=== PATIENT | female | born 1950 | race Caucasian/White ===

== ENCOUNTER 2019-03-31 21:19 | Observation (INO) ==
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
[2019-03-31 22:07] LABS: Hematocrit 38.4 % (37.0-47.0); Hemoglobin 12.5 gm/dL (12.5-16.0); Mean Cell Volume 94.3 fl (78-100); Mean Corpuscular Hemoglobin 30.7 pg (27-31); Mean Corpuscular Hgb Conc 32.6 g/dl (32-36); Mean Platelet Volume 9.5 fl (8-12.5); Neutrophil # 3.4 K/mm3 (1.3-6.0); Neutrophil % 70.7 % (42-75.0); Platelet Count 210 K/mm3 (150-450); Red Blood Count 4.07 M/mm3 (4.2-5.4); Red Cell Distribution Width 12.7 % (11.5-14.0); White Blood Count 4.7 K/mm3 (4.0-10.5)
[2019-03-31 22:25] LABS: Urine Bilirubin Negative (NEGATIVE); Urine Blood 50 /ul (NEGATIVE); Urine Ketone Negative (NEGATIVE); Urine Nitrite Negative (NEGATIVE); Urine Protein Negative (NEGATIVE); Urine Specific Gravity 1.015 SP.GR. (1.005-1.010)
[2019-03-31 22:27] LABS: ALT 17 U/L (19-67); AST 18 U/L (0-48); Albumin * 3.6 gm/dl (3.4-5.0); Alkaline Phosphatase * 83 U/L (50-170); Anion Gap 13.2 mmol/L (6.8-13.8); BNP * 154 pg/mL (5-325); BUN/Creatinine Ratio 16.9 (9.0-21.6); Bilirubin, Total 0.4 mg/dL (0.0-1.1); Blood Urea Nitrogen 20 mg/dL (3-23); Ca. Corrected For Albumin 9.7 mg/dL (8.4-10.2); Calcium * 9.7 mg/dL (7.9-10.9); Carbon Dioxide 32.5 mmol/L (24-32.6); Chloride 100 mmol/L (97-106); Glucose * 233 mg/dL (70-110); Potassium 3.7 mmol/L (3.4-4.6); Sodium 142 mmol/L (132-142); Total Protein 7.4 gm/dL (6.2-8.2); Troponin I Less than 0.017 ng/mL (0.00-0.10)
[2019-03-31 22:36] LABS: Urine Appearance Clear (CLEAR); Urine Bacteria TRACE; Urine Color Yellow; Urine WBC 0-5 /hpf (0-5)
[2019-04-01] MEDS ORDERED: DEXTROSE 5 % IN WATER 100 ML BAG IV ONE (02:31)
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
[2019-04-01] MEDS ORDERED: ZOLPIDEM TARTRATE 10 MG TABLET PO PRN (09:34)
[2019-04-01] MEDS: LISINOPRIL 10 MG TABLET PO SCH (11:05)
[2019-04-01] MEDS: FENOFIBRATE,MICRONIZED 67 MG CAPSULE PO SCH (11:05)
[2019-04-01] MEDS: glipiZIDE 5 MG TAB.SR.24H PO SCH (11:05)
[2019-04-01] MEDS: CIPROFLOXACIN HCL 500 MG TABLET PO SCH ×2 (11:05→21:06)
[2019-04-01] MEDS: MULTIVITAMINS 1 CAP CAPSULE PO SCH (11:05)
[2019-04-01] MEDS: METOPROLOL SUCCINATE 100 MG TABLET.SA PO SCH (11:05)
[2019-04-01] MEDS: ASPIRIN 81 MG TABLET.DR PO SCH (13:15)
[2019-04-01] MEDS ORDERED: ROSUVASTATIN CALCIUM 10 MG TABLET PO SCH (21:00)
[2019-04-01] MEDS: NYSTATIN 15 APPL BTL TP SCH (21:04)
[2019-04-01] MEDS: BUMETANIDE 1 MG TABLET PO SCH (21:05)
[2019-04-02] MEDS: CIPROFLOXACIN HCL 500 MG TABLET PO SCH (08:16)
[2019-04-02] MEDS: BUMETANIDE 1 MG TABLET PO SCH (08:16)
[2019-04-02] MEDS: MULTIVITAMINS 1 CAP CAPSULE PO SCH (08:16)
[2019-04-02] MEDS: METOPROLOL SUCCINATE 100 MG TABLET.SA PO SCH (08:16)
[2019-04-02] MEDS: LISINOPRIL 10 MG TABLET PO SCH (08:17)
[2019-04-02] MEDS: ASPIRIN 81 MG TABLET.DR PO SCH (08:17)
[2019-04-02] MEDS: glipiZIDE 5 MG TAB.SR.24H PO SCH (08:17)
[2019-04-02] MEDS: FENOFIBRATE,MICRONIZED 67 MG CAPSULE PO SCH (08:17)
[2019-04-02] MEDS: NYSTATIN 15 APPL BTL TP SCH (08:19)
[2019-04-02] MEDS ORDERED: ASPIRIN 81 MG TAB.CHEW PO SCH (09:00)
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
[2019-04-02 17:46] VITALS: BP 111/63
== END 2019-04-02 17:50 | disposition home health service (06) ==
LOC: MS 21:19 → ER 21:19 → MS 04-01 02:45
PROVIDERS: ADMIT Internal Medicine; ATTEND Internal Medicine
DX: W19.XXXA Unspecified fall, initial encounter; R53.1 Weakness; N30.01 Acute cystitis with hematuria; L89.309 Pressure ulcer of unspecified buttock, unspecified stage; E11.622 Type 2 diabetes mellitus with other skin ulcer; E11.9 Type 2 diabetes mellitus without complications; I10 Essential (primary) hypertension
CPT/HCPCS: 36415; 70450; 70551; 72128; 72131; 80053; 81001; 83519; 83880; 84484; 85025; 87040; 87081; 87086; 93005; 96365; 97110; 97116; 97162; 99284; G0378